=== PATIENT | female | born 1970 | race Caucasian/White ===

== ENCOUNTER 2019-09-20 14:28 | Observation (INO) | payer OTHER, MEDICAID ==
[~2019-09-20] VITALS: Ht 162.6 cm; Wt 81.6 kg
[2019-09-20] VITALS (7 sets, daily range): BP systolic 122–140; BP diastolic 78–94
[2019-09-20 15:27] LABS: BARBITURATES NEG (NEG); BENZODIAZEPINES POS (NEG); CANNABINOIDS POS (NEG); COCAINE NEG (NEG); METHADONE NEG (NEG); OPIATES NEG (NEG); PHENCYCLIDINE NEG (NEG)
[2019-09-20 15:31] LABS: AMPHETAMINE/METHAMPHETAMINE NEG (NEG)
[2019-09-20 15:32] LABS: BILIRUBIN,URINE NEGATIVE (NEG); CLARITY,URINE CLEAR; COLOR,URINE YELLOW; NITRITE,URINE NEGATIVE (NEG); PROTEIN,URINE NEGATIVE (NEG-TRACE); UROBILINOGEN,URINE 0.2 mg/dL (0.2 mg/dL)
[2019-09-20 15:33] LABS: BACTERIA,URINE FEW /HPF (0-FEW); RBC,URINE 0 /HPF (0-2); SQUAMOUS EPITHELIAL CELL,UR MOD /LPF; WBC,URINE OCC /HPF (0-4)
[2019-09-20 15:36] LABS: BASO # 0.1 x10^3/uL (0.0-0.2); BASO % 1 % (0-3); EOS # 0.4 x10^3/uL (0.0-0.7); EOS % 4 % (0-3); HEMATOCRIT 40.1 % (36.0-47.0); HEMOGLOBIN 13.7 g/dL (12.0-15.5); LYMPH # 2.4 x10^3/uL (1.0-4.8); LYMPH % 24 % (24-48); MEAN CORPUSCULAR HEMOGLOBIN 32 pg (25-35); MEAN CORPUSCULAR HGB CONC 34 g/dL (31-37); MEAN CORPUSCULAR VOLUME 94 fL (79-100); MONO # 0.8 x10^3/uL (0.0-1.1); MONO % 8 % (0-9); NEUT # 6.5 x10^3/uL (1.8-7.7); NEUT % 64 % (31-73); PLATELET COUNT 266 x10^3/uL (140-400); RED BLOOD COUNT 4.25 x10^6/uL (3.50-5.40); RED CELL DISTRIBUTION WIDTH 14.1 % (11.5-14.5); WHITE BLOOD COUNT 10.1 x10^3/uL (4.0-11.0)
[2019-09-20 15:36] LABS: ISTAT BE VENOUS 5 mmol/L (0-3); ISTAT HCO3 VEN 29 mmol/L (24-28); ISTAT PCO2 VEN 44 mmHg (41-51); ISTAT PH VEN 7.44 (7.32-7.42); ISTAT PO2 VEN 82 mmHg (20-40); ISTAT SAT O2 VEN 96 %; ISTAT TCO2 VEN 31 mmol/L (21-32)
[2019-09-20 16:07] LABS: CALCIUM 9.1 mg/dL (8.5-10.1); CREATININE 0.9 mg/dL (0.6-1.0); GFR 66.5; POTASSIUM 4.3 mmol/L (3.5-5.1)
[2019-09-20 16:12] LABS: ACETAMIN < 2.0 mcg/ml (10-30)
[2019-09-20 16:16] LABS: ALBUMIN 3.6 g/dL (3.4-5.0); ALBUMIN/GLOBULIN RATIO 0.9 (1.0-1.7); TOTAL BILIRUBIN 0.2 mg/dL (0.2-1.0); TOTAL PROTEIN 7.4 g/dL (6.4-8.2)
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
[2019-09-20] MEDS ORDERED: BIOT1CAP3 PO (18:30)
[2019-09-20] MEDS ORDERED: DOCUSATE SODIUM 100 MG CAPSULE. PO PRN (20:45)
[2019-09-20] MEDS ORDERED: ACETAMINOPHEN 325 MG TABLET. PO PRN (20:45)
[2019-09-20] MEDS ORDERED: 0.9 % SODIUM CHLORIDE 10 ML DISP.SYRIN. IV PRN ×2 (20:45→21:15)
[2019-09-20] MEDS ORDERED: IV NORMAL SALINE 1000ML BAG 1,000 ML IV ONE (20:45)
[2019-09-20] MEDS ORDERED: ALBUTEROL SULFATE 2.5 MG/3 ML NEBU. NEB PRN (20:45)
[2019-09-20] MEDS ORDERED: ACETAMINOPHEN 650 MG SUPP.RECT. PR PRN (20:45)
[2019-09-20] MEDS ORDERED: ENOXAPARIN 40 MG/0.4 ML SYRINGE. SQ SCH (21:00)
[2019-09-20] MEDS: IV NORMAL SALINE 1000ML BAG 1,000 ML IV SCH (21:02)
[2019-09-20] MEDS ORDERED: BISACODYL 10 MG SUPP.RECT. PR PRN (21:15)
[2019-09-20] MEDS ORDERED: LORazepam 1 MG TABLET PO PRN (21:15)
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
[2019-09-20] MEDS ORDERED: PANT20TA2 PO (22:28)
--- NOTE | 2019-09-20 22:33 | RAD ---
ACUTE ABDOMEN SERIES History: Overdose Comparison: None. Findings: Single view of the chest and single supine and single upright AP views of the abdomen are submitted. There is no lobar consolidation, dependent pleural fluid, pneumothorax, or free air. There is posterolateral fusion hardware of the inferior lumbar spine. There is retained stool in the colon. No gas dilated small bowel is identified. Impression: 1. There is retained stool in segments of the colon. Electronically signed by: Niranjan Nogueira MD (09/20/2019 10:30 PM) [facility]
[2019-09-21] VITALS (9 sets, daily range): BP systolic 105–132; BP diastolic 65–95
[2019-09-21] MEDS ORDERED: NICOTINE 21MG PATCH. TD PRN (00:45)
[2019-09-21] MEDS ORDERED: ALPR0.5T PO (01:23)
[2019-09-21] MEDS ORDERED: CYCL10TA2 PO (01:23)
[2019-09-21] MEDS ORDERED: FERR240T11 PO (01:23)
[2019-09-21] MEDS ORDERED: ONDA4TAB12 PO (01:23)
[2019-09-21] MEDS: IV NORMAL SALINE 1000ML BAG 1,000 ML IV SCH (04:24)
[2019-09-21 05:36] LABS: BASO # 0.1 x10^3/uL (0.0-0.2); BASO % 1 % (0-3); EOS # 0.3 x10^3/uL (0.0-0.7); EOS % 4 % (0-3); HEMATOCRIT 36.1 % (36.0-47.0); HEMOGLOBIN 12.2 g/dL (12.0-15.5); LYMPH # 2.1 x10^3/uL (1.0-4.8); LYMPH % 30 % (24-48); MEAN CORPUSCULAR HEMOGLOBIN 32 pg (25-35); MEAN CORPUSCULAR HGB CONC 34 g/dL (31-37); MEAN CORPUSCULAR VOLUME 94 fL (79-100); MONO # 0.5 x10^3/uL (0.0-1.1); MONO % 7 % (0-9); NEUT # 4.1 x10^3/uL (1.8-7.7); NEUT % 58 % (31-73); PLATELET COUNT 218 x10^3/uL (140-400); RED BLOOD COUNT 3.83 x10^6/uL (3.50-5.40); RED CELL DISTRIBUTION WIDTH 13.8 % (11.5-14.5)
--- NOTE | 2019-09-21 06:14 | EKG ---
[facility] [address] [place] [address] Test Date: 2019-09-20 Test Time: 15:27:20 Pat Name: JUANPABLO BUTLER Department: Room: Gender: F Admissions Officer: : 1970 Requested By: NEMESIO AVILA Order Number: [id number] Reading MD: Measurements Intervals [place] Rate: 84 P: 72 WI: 152 QRS: -28 QRSD: 90 T: 41 QT: 402 QTc: 479 Interpretive Statements SINUS RHYTHM LEFT ATRIAL ABNORMALITY LEFTWARD AXIS INCOMPLETE RIGHT BUNDLE BRANCH BLOCK PROLONGED QT ABNORMAL ECG RI6.02 No previous ECG available for comparison
[2019-09-21 06:27] LABS: ALBUMIN 3.4 g/dL (3.4-5.0); ALBUMIN/GLOBULIN RATIO 1.2 (1.0-1.7); CREATININE 1.1 mg/dL (0.6-1.0); GFR 52.8; POTASSIUM 3.5 mmol/L (3.5-5.1); TOTAL BILIRUBIN 0.2 mg/dL (0.2-1.0); TOTAL PROTEIN 6.2 g/dL (6.4-8.2)
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
[2019-09-21] MEDS ORDERED: POTASSIUM CHLORIDE 20 MEQ TABLET.ER. PO ONE (08:00)
[2019-09-21] MEDS ORDERED: FAMOTIDINE 20 MG/2 ML VIAL IVP SCH (09:00)
[2019-09-21] MEDS ORDERED: SENNOSIDES/DOCUSATE 8.6/50MG TABLET. PO SCH (09:00)
[2019-09-21] MEDS ORDERED: ELECTROLYTE (ICU) PROTOCOL. MC SCH (09:00)
--- NOTE | 2019-09-21 11:42 | NUR ---
SS following for discharge planning. SS reviewed pt chart and discussed with RN. Pt had overdose. PAT team referral made for assessment and recommendations. Manjinder from PAT team met with pt and pt not SI. Pt had argument with boyfriend. Pt is currently on room air and reports that she is couch surfing with family and friends. Pt has services at [facility] and sees psychiatrist, Dr. Robles. Referral made to [facility]. Pt wanting to leave AMA. SS will continue to follow for discharge planning.
--- NOTE | 2019-09-21 12:24 | NUR ---
Patient spoke with Manjinder from PAT team, patient was cleared from 1:1 observation status but was setting up a referral to [facility] if consented to it. Patient was told she no longer required 1:1 status and was finding a room upstairs to help make patient more comfortable, but she immediately asked for AMA paperwork. Manjinder was notified, attempted to discuss staying one more night but patient adamantly refused. A safety plan was made for follow up counseling. Dr. Murry notified of AMA request, paperwork signed and IV discontinued. Patient was given back belongings. There was confusion regarding a "burgundy oasis bag", looked at patient belongings intervention and it was not listed as a belonging brought in on admission. Spoke to ED RN that took care of patient, said patient did not come in with a burgundy bag, only a clear wallet that went down to security. Patient highly upset. Patient then escorted out by security and this RN.
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
== END 2019-09-21 12:10 | disposition left against medical advice (07) ==
LOC: ER 14:28 → INTOOBSV 16:19 → 1 WEST ICU 16:19
PROVIDERS: ADMIT Family Medicine; ATTEND Family Medicine
DX: T45.0X2A Poisoning by antiallergic and antiemetic drugs, intentional self-harm, initial encounter (principal); I49.9 Cardiac arrhythmia, unspecified; J44.9 Chronic obstructive pulmonary disease, unspecified; F32.9 Major depressive disorder, single episode, unspecified; F19.10 Other psychoactive substance abuse, uncomplicated; F17.210 Nicotine dependence, cigarettes, uncomplicated; F12.10 Cannabis abuse, uncomplicated; K21.9 Gastro-esophageal reflux disease without esophagitis; Z86.19 Personal history of other infectious and parasitic diseases; Z90.710 Acquired absence of both cervix and uterus
CPT/HCPCS: 36415; 74022; 80053; 80307; 80329; 81001; 82803; 82962; 83735; 84443; 84484; 85025; 85610; 85730; 93005; 96361; 96372; 96374; 99285; G0378; J1650; J3490; J7030; 96360; G0379; 99284-25; G0480; J7613